=== PATIENT | female | born 1995 | race Caucasian/White ===

== ENCOUNTER → 2025-02-27 10:14 | Outpatient (REF) | payer OTHER, SELFPAY | LOC: RAD 10:14 | PROVIDERS: ATTENDING PHYSICIAN Nurse Practitioner Family; FAMILY PHYSICIAN Physician Assistant Medical | DX: R10.2 Pelvic and perineal pain (principal) | CPT/HCPCS: 76830; 76856 ==

== ENCOUNTER 2025-09-15 06:28 | Day surgery (SDC) | payer OTHER, SELFPAY | END 2025-09-15 11:47 | disposition home or self-care (01) | LOC: GI 06:28 | PROVIDERS: ATTENDING PHYSICIAN Internal Medicine | DX: K31.7 Polyp of stomach and duodenum (principal); K31.89 Other diseases of stomach and duodenum; R13.10 Dysphagia, unspecified | CPT/HCPCS: 43251; 88305; 88342 ==